=== PATIENT | female | born 1950 | race Caucasian/White ===

== ENCOUNTER 2020-07-17 09:22 | Inpatient (IN) | payer MEDICARE ==
[~2020-07-17] VITALS: Ht 165.1 cm; Wt 79.8 kg
[2020-07-17] MEDS ORDERED: ASPIRIN 81 MG CHEWABLE TABLET PO ONE (10:30)
[2020-07-17] MEDS ORDERED: NITROGLYCERIN 0.4 MG SUBLINGUAL TABLET #25 SL ONE (10:30)
[2020-07-17] MEDS ORDERED: NITROGLYCERIN 2% (1 GM=INCH) PACKET TP ONE (10:30)
[2020-07-17 10:47] LABS: BASOPHILS % (AUTO) 0.8 % (0.0-2.0); EOSINOPHILS % (AUTO) 2.4 % (1.0-6.0); HEMATOCRIT 38.8 % (36-46); HEMOGLOBIN 12.4 g/dL (12.0-16.0); LYMPHOCYTES # (AUTO) 2.4 K/uL (1.0-4.8); LYMPHOCYTES % (AUTO) 26.4 % (22.0-44.0); MEAN CORPUSCULAR HEMOGLOBIN 28.4 pg (26.0-34.0); MEAN CORPUSCULAR VOLUME 89 fL (80-100); MONOCYTES # (AUTO) 0.5 K/uL (0.1-1.0); NEUTROPHILS # (AUTO) 5.8 K/uL (1.8-7.7); NEUTROPHILS % (AUTO) 64.4 % (40.0-70.0); PLATELET COUNT (AUTO) 276 K/uL (150-450); RED BLOOD CELL COUNT(AUTO) 4.38 MIL/uL (4.00-5.20)
[2020-07-17 10:54] LABS: CALCIUM, TOTAL 10.1 mg/dL (8.8-10.5); CREATININE 1.19 mg/dL (0.60-1.30); POTASSIUM 4.9 mmol/L (3.5-5.1)
[2020-07-17 11:01] LABS: ALBUMIN 3.5 g/dL (3.4-5.0); BILIRUBIN,TOTAL 0.3 mg/dL (0.1-1.0); TOTAL PROTEIN, SERUM 6.8 g/dL (6.4-8.2)
[2020-07-17 11:18] LABS: APPEARANCE,URINE CLOUDY (CLEAR); BILIRUBIN,URINE NEGATIVE (NEGATIVE); GLUCOSE, URINE (UA) NEGATIVE (NEGATIVE); KETONES,URINE NEGATIVE (NEGATIVE); LEUKOCYTE ESTERASE ,URINE LARGE (NEGATIVE); NITRATE,URINE POSITIVE (NEGATIVE); OCCULT BLOOD,URINE TRACE (NEGATIVE); PROTEIN,URINE TRACE (NEGATIVE); UROBILINOGEN,URINE 0.2 mg/dL (<=1.0)
[2020-07-17 11:20] LABS: RBC,URINE 0-2 /HPF (0-2)
[2020-07-17 11:21] LABS: BACTERIA,URINE Many /HPF (None Seen); SQUAMOUS EPITHELIAL CELL,UR Moderate /LPF (None Seen); WBC,URINE 51-100 /HPF (0-5)
[2020-07-17] MEDS ORDERED: ONDANSETRON HCL 4 MG/2 ML VIAL IVP PRN (12:00)
[2020-07-17] MEDS ORDERED: DOCUSATE SODIUM 100 MG CAPSULE PO PRN (12:00)
[2020-07-17] MEDS ORDERED: DEXTROSE 50%-WATER 25 GM/50 ML SYRINGE IVP PRN (12:00)
[2020-07-17] MEDS ORDERED: BISACODYL 10 MG RECTAL RECTAL SUPPOSITORY PR PRN (12:00)
[2020-07-17] MEDS ORDERED: MAGNESIUM HYDROXIDE SUSPENSION 30 ML UDCUP PO PRN (12:00)
[2020-07-17] MEDS ORDERED: 0.9% SODIUM CHLORIDE 10 ML SYRINGE IVP PRN (12:00)
[2020-07-17] MEDS ORDERED: NITROGLYCERIN 0.4 MG SUBLINGUAL TABLET #25 SL PRN (12:15)
[2020-07-17 13:43] LABS: COVID AG,FIA SOURCE NASOPHARYNGEAL
[2020-07-17 17:30] VITALS: BP 126/63
[2020-07-17 19:15] VITALS: BP 115/70
[2020-07-17] MEDS: CARVEDILOL 3.125 MG TABLET PO SCH (19:46)
[2020-07-17] MEDS: APIXABAN 5 MG TABLET PO SCH (19:46)
[2020-07-17] MEDS: TraMADol HCL 50 MG TABLET PO PRN (19:47)
[2020-07-17] MEDS: ATORVASTATIN CALCIUM 40 MG TABLET PO SCH (19:47)
[2020-07-17] MEDS: NYSTATIN 15 GM POWDER BOTTLE TP SCH (19:47)
[2020-07-17] MEDS: INSULIN LISPRO 100 UNITS/ML SQ PRN (19:49)
[2020-07-17] MEDS ORDERED: PNEUMOCOCCAL VACCINE POLYVALENT 0.5 ML VIAL [PPSV23] IM. ONE (20:00)
[2020-07-17 23:40] VITALS: BP 104/60
[2020-07-18 04:27] VITALS: BP 121/64
[2020-07-18] MEDS: TraMADol HCL 50 MG TABLET PO PRN (05:44)
[2020-07-18 07:05] LABS: ALANINE AMINOTRANSFERASE 12 U/L (12-78); ALBUMIN 3.2 g/dL (3.4-5.0); ALKALINE PHOSPHATASE 79 U/L (46-116); ANION GAP 4 mmol/L (8-16); ASPARTATE AMINOTRANSFERASE 19 U/L (15-37); BILIRUBIN,TOTAL 0.4 mg/dL (0.1-1.0); CALCIUM, TOTAL 9.4 mg/dL (8.8-10.5); CARBON DIOXIDE 29 mmol/L (22-29); CHLORIDE 105 mmol/L (98-107); CHOL/HDL RATIO 2.3 (3.9-5.7); CHOLESTEROL 145 mg/dL (131-200); CREATININE 0.83 mg/dL (0.60-1.30); GLOMERULAR FILTR. RATE CALC > 60 mL/min (>60); GLUCOSE,RANDOM 90 mg/dL (70-110); HDL CHOLESTEROL 62 mg/dL (40-60); LDL CHOL (CALC.) 70 mg/dL (0-130); POTASSIUM 4.5 mmol/L (3.5-5.1); SODIUM SERUM 138 mmol/L (136-145); TOTAL PROTEIN, SERUM 6.1 g/dL (6.4-8.2); TRIGLYCERIDES 63 mg/dL (15-150); UREA NITROGEN, BLOOD 20 mg/dL (7-18)
[2020-07-18 07:42] VITALS: BP 114/59
[2020-07-18 08:03] LABS: BASOPHILS % (AUTO) 0.5 % (0.0-2.0); EOSINOPHILS % (AUTO) 2.6 % (1.0-6.0); HEMATOCRIT 37.5 % (36-46); HEMOGLOBIN 12.3 g/dL (12.0-16.0); LYMPHOCYTES # (AUTO) 2.6 K/uL (1.0-4.8); LYMPHOCYTES % (AUTO) 31.3 % (22.0-44.0); MEAN CORPUSCULAR HEMOGLOBIN 28.7 pg (26.0-34.0); MEAN CORPUSCULAR HGB CONC 32.7 G/dL (31.0-37.0); MEAN CORPUSCULAR VOLUME 88 fL (80-100); MONOCYTES # (AUTO) 0.6 K/uL (0.1-1.0); NEUTROPHILS # (AUTO) 4.8 K/uL (1.8-7.7); NEUTROPHILS % (AUTO) 58.6 % (40.0-70.0); PLATELET COUNT (AUTO) 274 K/uL (150-450); RED BLOOD CELL COUNT(AUTO) 4.27 MIL/uL (4.00-5.20); RED CELL DISTRIBUTION WIDTH 15.9 % (11.5-14.5)
[2020-07-18 08:06] LABS: GLUCOMETER DEV NAME(LOC) 5N.1C; GLUCOSE,POINT OF CARE 199 MG/DL (70-110)
[2020-07-18 08:06] LABS: GLUCOMETER DEV NAME(LOC) 5N.1C; GLUCOSE,POINT OF CARE 178 MG/DL (70-110)
[2020-07-18] MEDS: APIXABAN 5 MG TABLET PO SCH ×2 (08:28→20:55)
[2020-07-18] MEDS: CARVEDILOL 3.125 MG TABLET PO SCH ×2 (08:28→20:54)
[2020-07-18] MEDS: PANTOPRAZOLE SODIUM 40 MG DR TABLET PO SCH (08:28)
[2020-07-18] MEDS: CLOPIDOGREL BISULFATE 75 MG TABLET PO SCH (08:28)
[2020-07-18] MEDS ORDERED: ASPIRIN 81 MG CHEWABLE TABLET PO SCH (09:00)
[2020-07-18] MEDS: NYSTATIN 15 GM POWDER BOTTLE TP SCH ×3 (11:11→21:00)
[2020-07-18 11:17] VITALS: BP 108/64
[2020-07-18] MEDS: INSULIN LISPRO 100 UNITS/ML SQ PRN (11:55)
[2020-07-18 15:12] VITALS: BP 122/68
[2020-07-18 15:39] LABS: GLUCOMETER DEV NAME(LOC) 5N.1C; GLUCOSE,POINT OF CARE 195 MG/DL (70-110)
[2020-07-18 15:40] LABS: GLUCOMETER DEV NAME(LOC) 5N.3; GLUCOSE,POINT OF CARE 88 MG/DL (70-110)
[2020-07-18 19:55] VITALS: BP 127/68
[2020-07-18 19:58] LABS: GLUCOMETER DEV NAME(LOC) 5N.3; GLUCOSE,POINT OF CARE 96 MG/DL (70-110)
[2020-07-18] MEDS: ATORVASTATIN CALCIUM 40 MG TABLET PO SCH (20:54)
[2020-07-18 22:04] LABS: GLUCOMETER DEV NAME(LOC) 5S.1; GLUCOSE,POINT OF CARE 156 MG/DL (70-110)
[2020-07-19 00:12] VITALS: BP 107/64
[2020-07-19 04:12] VITALS: BP 108/58
[2020-07-19 05:54] LABS: BASOPHILS % (AUTO) 0.6 % (0.0-2.0); EOSINOPHILS % (AUTO) 4.4 % (1.0-6.0); HEMATOCRIT 37.5 % (36-46); HEMOGLOBIN 12.2 g/dL (12.0-16.0); LYMPHOCYTES # (AUTO) 2.4 K/uL (1.0-4.8); LYMPHOCYTES % (AUTO) 32.9 % (22.0-44.0); MEAN CORPUSCULAR HEMOGLOBIN 28.7 pg (26.0-34.0); MEAN CORPUSCULAR HGB CONC 32.6 G/dL (31.0-37.0); MEAN CORPUSCULAR VOLUME 88 fL (80-100); MONOCYTES # (AUTO) 0.5 K/uL (0.1-1.0); MONOCYTES % (AUTO) 7.2 % (2.0-9.0); NEUTROPHILS # (AUTO) 4.1 K/uL (1.8-7.7); NEUTROPHILS % (AUTO) 54.9 % (40.0-70.0); PLATELET COUNT (AUTO) 266 K/uL (150-450); RED BLOOD CELL COUNT(AUTO) 4.27 MIL/uL (4.00-5.20); RED CELL DISTRIBUTION WIDTH 15.9 % (11.5-14.5)
[2020-07-19 06:45] LABS: ALANINE AMINOTRANSFERASE 13 U/L (12-78); ALBUMIN 3.3 g/dL (3.4-5.0); ALKALINE PHOSPHATASE 82 U/L (46-116); ANION GAP 4 mmol/L (8-16); ASPARTATE AMINOTRANSFERASE 21 U/L (15-37); BILIRUBIN,TOTAL 0.4 mg/dL (0.1-1.0); CALCIUM, TOTAL 9.6 mg/dL (8.8-10.5); CARBON DIOXIDE 29 mmol/L (22-29); CHLORIDE 105 mmol/L (98-107); CREATININE 0.88 mg/dL (0.60-1.30); GLOMERULAR FILTR. RATE CALC > 60 mL/min (>60); GLUCOSE,RANDOM 117 mg/dL (70-110); POTASSIUM 4.4 mmol/L (3.5-5.1); SODIUM SERUM 138 mmol/L (136-145); TOTAL PROTEIN, SERUM 6.3 g/dL (6.4-8.2); UREA NITROGEN, BLOOD 17 mg/dL (7-18)
[2020-07-19 07:31] VITALS: BP 116/56
[2020-07-19] MEDS: APIXABAN 5 MG TABLET PO SCH (08:26)
[2020-07-19] MEDS: CLOPIDOGREL BISULFATE 75 MG TABLET PO SCH (08:26)
[2020-07-19] MEDS: NYSTATIN 15 GM POWDER BOTTLE TP SCH ×2 (08:26→16:50)
[2020-07-19] MEDS: PANTOPRAZOLE SODIUM 40 MG DR TABLET PO SCH (08:26)
[2020-07-19] MEDS: CARVEDILOL 3.125 MG TABLET PO SCH (08:26)
[2020-07-19 08:38] LABS: GLUCOMETER DEV NAME(LOC) 5N.1C; GLUCOSE,POINT OF CARE 115 MG/DL (70-110)
[2020-07-19] MEDS: INSULIN LISPRO 100 UNITS/ML SQ PRN (11:37)
[2020-07-19 11:47] VITALS: BP 104/66
[2020-07-19] MEDS ORDERED: APIX5TAB PO (14:52)
[2020-07-19] MEDS ORDERED: ATOR40TA28 PO (14:53)
[2020-07-19] MEDS ORDERED: CARV3 PO (14:53)
[2020-07-19] MEDS ORDERED: CLOP75TA60 PO (14:54)
[2020-07-19 15:23] VITALS: BP 125/92
[2020-07-19 20:08] LABS: GLUCOMETER DEV NAME(LOC) 5N.1C; GLUCOSE,POINT OF CARE 191 MG/DL (70-110)
== END 2020-07-19 17:40 | disposition home or self-care (01) | DRG 303 ==
LOC: EMS 09:22 → 5S 13:01
PROVIDERS: ADMIT Internal Medicine; ATTEND Internal Medicine
PROC: 3E0234Z Introduction of Serum, Toxoid and Vaccine into Muscle, Percutaneous Approach (ICD-10-PCS; principal; 2020-07-17)
DX: I25.110 Atherosclerotic heart disease of native coronary artery with unstable angina pectoris (principal); I25.5 Ischemic cardiomyopathy; I48.91 Unspecified atrial fibrillation; I50.9 Heart failure, unspecified; I11.0 Hypertensive heart disease with heart failure; F31.9 Bipolar disorder, unspecified; E78.5 Hyperlipidemia, unspecified; E78.00 Pure hypercholesterolemia, unspecified; F03.90 Unspecified dementia, unspecified severity, without behavioral disturbance, psychotic disturbance, mood disturbance, and anxiety; E11.9 Type 2 diabetes mellitus without complications; Z20.822 Contact with and (suspected) exposure to COVID-19; Z87.891 Personal history of nicotine dependence; Z79.01 Long term (current) use of anticoagulants; I25.2 Old myocardial infarction; Z86.73 Personal history of transient ischemic attack (TIA), and cerebral infarction without residual deficits; Z23 Encounter for immunization; Z88.8 Allergy status to other drugs, medicaments and biological substances; Z79.899 Other long term (current) drug therapy; Z95.5 Presence of coronary angioplasty implant and graft
CPT/HCPCS: 71045; 80053; 80061; 81001; 82550; 82962; 83036; 83880; 84145; 84484; 85025; 85610; 85730; 87077; 87086; 87186; 90732; 93005; 93306; 99285; 36415-L1; 36415-TC

== ENCOUNTER 2022-09-12 11:37 | Emergency (ER) | payer MEDICARE ==
[~2022-09-12] VITALS: Ht 160 cm; Wt 75.9 kg
[~2022-09-12 11:37] MED LIST: APIX5TAB PO; ATOR40TA28 PO; CARV3 PO; CLOP75TA60 PO
[2022-09-12 11:38] VITALS: TEMP 100.3
[2022-09-12 13:19] LABS: BASOPHILS % (AUTO) 0.9 % (0.0-2.0); EOSINOPHILS % (AUTO) 1.1 % (1.0-6.0); HEMATOCRIT 40.9 % (36-46); HEMOGLOBIN 12.8 g/dL (12.0-16.0); LYMPHOCYTES # (AUTO) 2.5 K/uL (1.0-4.8); LYMPHOCYTES % (AUTO) 20.8 % (22.0-44.0); MEAN CORPUSCULAR HEMOGLOBIN 27.4 pg (26.0-34.0); MEAN CORPUSCULAR HGB CONC 31.2 G/dL (31.0-37.0); MEAN CORPUSCULAR VOLUME 88 fL (80-100); MONOCYTES # (AUTO) 0.8 K/uL (0.1-1.0); MONOCYTES % (AUTO) 6.9 % (2.0-9.0); NEUTROPHILS # (AUTO) 8.5 K/uL (1.8-7.7); NEUTROPHILS % (AUTO) 70.3 % (40.0-70.0); PLATELET COUNT (AUTO) 371 K/uL (150-450); RED BLOOD CELL COUNT(AUTO) 4.65 MIL/uL (4.00-5.20)
[2022-09-12 13:31] LABS: INR 1.1 (0.9-1.1); PROTHROMBIN TIME 11.2 SEC (9.4-11.6)
[2022-09-12 13:34] LABS: CALCIUM, TOTAL 10.3 mg/dL (8.8-10.5); CREATININE 1.34 mg/dL (0.60-1.30); POTASSIUM 4.9 mmol/L (3.5-5.1)
[2022-09-12 13:58] LABS: BILIRUBIN,TOTAL 0.6 mg/dL (0.1-1.0); TOTAL PROTEIN, SERUM 7.3 g/dL (6.4-8.2)
[2022-09-12] MEDS ORDERED: CARVEDILOL 3.125 MG TABLET PO ONE (15:15)
[2022-09-12] MEDS ORDERED: METH1TAB66 PO (15:19)
[2022-09-12] MEDS ORDERED: ZIPR60CA29 PO (15:19)
[2022-09-12] MEDS ORDERED: MIRA50TA PO (15:19)
[2022-09-12] MEDS ORDERED: MELO-108 PO (15:19)
[2022-09-12] MEDS ORDERED: SACU1TAB PO (15:19)
[2022-09-12] MEDS ORDERED: NYST30OI6 TP (15:19)
[2022-09-12] MEDS ORDERED: OLOP5DRO27 OU (15:19)
[2022-09-12] MEDS ORDERED: EMPA25TA3 PO (15:19)
[2022-09-12] MEDS ORDERED: ALEN70TA80 PO (15:19)
[2022-09-12] MEDS ORDERED: LAMO200T10 PO (15:19)
[2022-09-12] MEDS ORDERED: SODIUM CHLORIDE 0.9% 1,000 ML IV ONE (15:30)
[2022-09-12] MEDS ORDERED: KETOROLAC TROMETHAMINE 30 MG/ML VIAL IVP ONE (15:30)
[2022-09-12] MEDS ORDERED: IOHEXOL 350 MG/ML 100 ML VIAL ONE (15:50)
[2022-09-12] MEDS ORDERED: SODIUM CHLORIDE 0.9% 100 ML ONE (15:50)
[2022-09-12 16:49] VITALS: BP 100/55; PULSE 73; RESP 16
[2022-09-12] MEDS ORDERED: CEPH-558 PO (17:15)
== END 2022-09-12 18:03 | disposition home or self-care (01) ==
LOC: EMS 11:37
DX: L03.317 Cellulitis of buttock (principal); R07.89 Other chest pain; F31.9 Bipolar disorder, unspecified; E11.9 Type 2 diabetes mellitus without complications; E78.00 Pure hypercholesterolemia, unspecified; I11.9 Hypertensive heart disease without heart failure; Z88.6 Allergy status to analgesic agent; Z88.5 Allergy status to narcotic agent; Z88.8 Allergy status to other drugs, medicaments and biological substances; Z91.018 Allergy to other foods
CPT/HCPCS: 99285; 96374; 71275; 71045; 96361; 80053; 82550; 83880; 84484; 85025; 85610; 85730; 36415; 93005; J1885; Q9967; J7030; J7050